=== PATIENT | female | born 1955 | race Caucasian/White ===

== ENCOUNTER → 2016-10-12 | Outpatient (CLI) | payer BC, OTHER ==
--- NOTE | 2016-10-12 14:17 | REP ---
Clinical: Chest pain . Comparison: None . Technique: PA and lateral. Findings: The mediastinum and cardiac silhouette are normal. The lung bourgeois are clear and without acute consolidation, effusion, or pneumothorax. The skeletal structures are intact and normal. Impression: 1. No acute cardiopulmonary process. Signed by Polo Cortes MD 10/12/2016 02:08 P
--- NOTE | 2016-10-12 14:18 | REP ---
Clinical: Pain. Technique: Internal rotation, external rotation, and Y view of the right and left shoulder. Findings: Spurring and cortical irregularities involving the bilateral acromioclavicular joints is appreciated along with cortical irregularity and blunting to the bilateral glenohumeral joints suggesting moderate osteoarthritic degenerative changes. There is no evidence for acute fracture or dislocation. Previously identified periarticular calcification in the left shoulder on 2010 is not evident on current examination. Impression: Moderate, symmetric bilateral osteoarthritic degenerative changes involving the acromioclavicular and glenohumeral joints. Signed by Polo Cortes MD 10/12/2016 02:10 P
--- NOTE | 2016-10-12 14:21 | REP ---
Clinical: Pain. Technique: AP, lateral, flexion/extension, bilateral oblique and open mouth views of the cervical spine. Findings: Chronic-appearing reversal of normal lordosis centered at approximately C5-6. Advanced multilevel degenerative disc osteophyte complexes predominantly involving C4-5 through C6-7 and to a lesser extent C7-T1. Findings include osteophytosis, endplate sclerosis and disc space narrowing. No acute fracture / compression injury. Open mouth view demonstrates normal C1-C2 articulation and odontoid process. Impression: Advanced multilevel degenerative disc osteophyte complexes. No acute fracture / compression injury. Signed by Polo Cortes MD 10/12/2016 02:13 P
== END ==
LOC: M WUC 13:38
PROVIDERS: ATTEND Physician Assistant Medical
DX: M79.601 Pain in right arm (principal); M79.602 Pain in left arm

== ENCOUNTER → 2016-10-12 | Outpatient (REF) | payer OTHER ==
[2016-10-12 14:03] LABS: ANION GAP 8 MEQ/L (8-16); BASO % 0.3 % (0.0-1.0); BLOOD UREA NITROGEN 11 MG/DL (7-18); CALCIUM LEVEL 9.6 MG/DL (8.8-10.2); CARBON DIOXIDE LEVEL 29 MEQ/L (21-32); CHLORIDE LEVEL 106 MEQ/L (98-107); CREATININE FOR GFR 0.82 MG/DL (0.55-1.02); EOS # 0.1 K/mm3 (0.0-0.50); EOS % 0.9 % (0.0-3.0); GLOMERULAR FILTRATION RATE > 60.0 (>45); GLUCOSE, FASTING 84 MG/DL (80-110); LARGE UNSTAINED CELL # 0.1 K/mm3 (0.0-0.4); LARGE UNSTAINED CELL % 1.5 % (0.0-4.0); LYMPH # 1.9 K/mm3 (1.5-4.5); LYMPH % 23.5 % (24.0-44.0); MEAN CORPUSCULAR HEMOGLOBIN 30.8 pg (27.0-33.0); MEAN CORPUSCULAR HGB CONC 33.4 g/dl (32.0-36.5); MEAN CORPUSCULAR VOLUME 92.4 fl (80.0-96.0); MONO # 0.5 K/mm3 (0.0-0.8); NEUTROPHILS # 5.6 K/mm3 (1.8-7.7); NEUTROPHILS % 67.9 % (36.0-66.0); PLATELET COUNT, AUTOMATED 317 k/mm3 (150-450); POTASSIUM SERUM 4.2 MEQ/L (3.5-5.1); RED CELL DISTRIBUTION WIDTH 12.4 % (11.5-14.5); SODIUM LEVEL 143 MEQ/L (136-145); WHITE BLOOD COUNT 8.2 K/mm3 (4.0-10.0)
== END ==
LOC: M SFHCPLAZ 12:32
PROVIDERS: ATTEND Physician Assistant Medical
DX: M79.602 Pain in left arm (principal); R73.01 Impaired fasting glucose

== ENCOUNTER → 2016-12-15 | Outpatient (CLI) | payer BC, OTHER ==
--- NOTE | 2016-12-16 09:59 | REP ---
MR RIGHT SHOULDER: TECHNIQUE: Axial T2 fat sat, gradient echo, sagittal oblique T2 fat sat, coronal oblique T1, T2 fat sat. The supraspinatus tendon demonstrates abnormal increased signal extending through the distal aspect of the tendon on T2-weighted images consistent with a full thickness partial tear. There is ill-defined high signal on remainder of the tendon compatible with tendinopathy. The other rotator cuff tendons are intact. There are mild hypertrophic degenerative changes of the acromioclavicular joint with mild downward sloping and curved shape of the acromion. The biceps tendon is within the bicipital groove with no tenosynovitis. There is no Hill-Sach's deformity. The deltoid muscle is unremarkable with no abnormal signal. Biceps labral complex is intact. No definite labral tear is seen. There is no bone marrow edema or occult fracture. There is mild to moderate fluid in the subacromial subdeltoid bursa. No paralabral cyst is seen. IMPRESSION: Full thickness partial tear anterior supraspinatus tendon distal aspect. Tendopathy throughout the remainder of the supraspinatus tendon with ill-defined high signal noted. Other rotator cuff tendons are intact. No definite labral tear is seen, but the labrum would be better evaluated with MR arthrogram. Mild hypertrophic degenerative changes, acromioclavicular joint with mild downward sloping and curved shaped of the acromion. Mild to moderate fluid in the subacromial subdeltoid bursa. Signed by David Rojo MD 12/16/2016 07:09 P
== END ==
LOC: M RAD 16:26
PROVIDERS: ATTEND Physician Assistant Medical
DX: M54.2 Cervicalgia (principal)

== ENCOUNTER → 2016-12-20 | Outpatient (CLI) | payer BC, OTHER ==
--- NOTE | 2016-12-20 09:41 | REP ---
MR CERVICAL SPINE WITHOUT CONTRAST: HISTORY: Neck and shoulder pain. A small central disc protrusion is present at the C3-4 level. There is minimal effacement of the thecal sac without spinal cord compression. Facet hypertrophy is present on the left. This produces minimal narrowing of the left C3 neural foramen. The right C3 neural foramen is patent. A disc bulge and small central disc protrusion with associated osteophyte formation are present at the C4-5 level. There is minimal deformity of spinal cord. Bilateral uncinate process hypertrophy is present. This produces minimal and mild narrowing of the right and left C4 neural foramina respectfully. A disc bulge and small right paracentral disc protrusion with associated osteophyte formation are present at the C5-6 level. There is minimal spinal cord compression. Uncinate process hypertrophy is present on the left. This produces mild narrowing of the left C5 neural foramen. The right C5 neural foramen is patent. A disc bulge with associated osteophyte formation is present at the C6-7 level. There is mild effacement of the thecal sac without spinal cord compression. The C6 neural foramina are patent. A small central disc protrusion is present at the C7-T1 level. There is minimal effacement of the thecal sac without spinal cord compression. The C7 neural foramina are patent. There is no other disc bulge or herniation. The remaining neural foramina are patent. The spinal cord is normal in signal intensity. The C3-4 through C6-7 intervertebral discs are decreased in height consistent with disc degeneration. Increased signal intensity on T2-weighted images is present in the endplates of the C4 through 7 vertebral bodies. This represents degenerative change. IMPRESSION: There is cervical spondylosis at the C3-4 through C7-T1 levels most significant at the C5-6 level where there is minimal spinal cord compression. Signed by Adelso Dawn MD 12/20/2016 09:45 A
== END ==
LOC: M RAD 08:08
PROVIDERS: ATTEND Physician Assistant Medical
DX: M54.2 Cervicalgia (principal)

== ENCOUNTER → 2017-03-23 | Outpatient (REF) | payer OTHER | LOC: M LAB REF 17:21 | PROVIDERS: ATTEND Nurse Practitioner Women's Health | DX: Z00.00 Encounter for general adult medical examination without abnormal findings (principal) ==

== ENCOUNTER → 2017-03-23 | Outpatient (REF) | payer OTHER | LOC: M SFHCWAGY 11:16 | PROVIDERS: ATTEND Nurse Practitioner Women's Health | DX: Z12.4 Encounter for screening for malignant neoplasm of cervix (principal) ==

== ENCOUNTER → 2017-03-23 | Outpatient (CLI) | payer BC ==
--- NOTE | 2017-03-23 12:45 | REPMRS ---
Patient History The patient states she had a clinical breast exam in 03/2017. Patient is postmenopausal. Family history of colorectal cancer in brother at age 68 and prostate cancer in brother at age 69. Took hormonal contraceptives for 12 years. Taking estrogen for 10 years. Took progesterone for 6 years. Digital Woman Screen Mammo: March 23, 2017 - Exam #: [id number] Bilateral CC and MLO view(s) were taken. Technologist: aTmmy Abraham, Technologist Prior study comparison: March 17, 2016, digital woman screen mammo performed at [facility] to [facility]. January 28, 2015, digital woman screen mammo performed at [facility]. January 25, 2014, bilateral bilat screen digital mammo, performed at [facility] ([facility]). FINDINGS: The breast tissue is almost entirely fat. There has been no change in the appearance of the mammogram from the prior studies. There is no interval development of dominant mass, architectural distortion, or clustered microcalcification typical of malignancy. ASSESSMENT: BI-RADS/ACR category 1 mammogram. Negative. Recommendation Routine screening mammogram of both breasts in 1 year (for women over age 40). This mammogram was interpreted with the aid of an FDA-approved computer-aided dectection system. Electronically Signed By: Brooks Cano MD 03/23/17 [id number]
== END ==
LOC: M WHC 10:48
PROVIDERS: ATTEND Family Medicine
DX: Z12.31 Encounter for screening mammogram for malignant neoplasm of breast (principal)

== ENCOUNTER → 2017-09-05 | Outpatient (CLI) | payer BC, OTHER ==
[~2017-09-05] MED LIST: E-Z-GAS II EFFERVESCENT PACKET (SODIUM BICARB./CITRIC ACID/SIMETHICONE) As Ordered; E-Z-HD 98% w/w 340GM SUSP BTL As Ordered; E-Z-PAQUE 96% w/w SUSP 176GM BTL As Ordered
== END ==
LOC: M RAD 08:35
DX: K21.9 Gastro-esophageal reflux disease without esophagitis (principal); R13.10 Dysphagia, unspecified
CPT/HCPCS: 74220

== ENCOUNTER 2017-09-29 09:05 | Day surgery (SDC) | payer BC, OTHER ==
[2017-09-29] MEDS: NS 1,000 ML IV (09:45)
[2017-09-29] MEDS ORDERED: LIDOCAINE 2% INJ 100 MG/5 ML SDV (FOR ANES.) As Ordered (11:03)
[2017-09-29] MEDS ORDERED: PROPOFOL 200 MG/20 ML VIAL As Ordered ×2 (11:03)
== END 2017-09-29 12:15 | disposition home or self-care (01) ==
LOC: M OPP 09:05
DX: Z12.11 Encounter for screening for malignant neoplasm of colon (principal); Z86.010 Personal history of colon polyps; Z80.0 Family history of malignant neoplasm of digestive organs; D12.2 Benign neoplasm of ascending colon; K57.30 Diverticulosis of large intestine without perforation or abscess without bleeding; K64.8 Other hemorrhoids; R13.12 Dysphagia, oropharyngeal phase; K21.9 Gastro-esophageal reflux disease without esophagitis; K44.9 Diaphragmatic hernia without obstruction or gangrene; E04.2 Nontoxic multinodular goiter; R12 Heartburn; M19.90 Unspecified osteoarthritis, unspecified site; M51.9 Unspecified thoracic, thoracolumbar and lumbosacral intervertebral disc disorder; L70.9 Acne, unspecified; F32.9 Major depressive disorder, single episode, unspecified; R51 Headache; R05 Cough; G47.30 Sleep apnea, unspecified; R06.83 Snoring; Z80.42 Family history of malignant neoplasm of prostate; Z91.030 Bee allergy status; Z79.899 Other long term (current) drug therapy
CPT/HCPCS: 45385

== ENCOUNTER → 2017-11-21 | Outpatient (CLI) | payer BC, OTHER | LOC: M RAD 14:54 | DX: E04.2 Nontoxic multinodular goiter (principal) | CPT/HCPCS: 76536 ==

== ENCOUNTER → 2017-12-29 | Outpatient (CLI) | payer BC, OTHER | LOC: M RAD 15:56 | DX: N95.0 Postmenopausal bleeding (principal) ==

== ENCOUNTER 2018-01-02 06:13 | Day surgery (SDC) | payer BC, OTHER ==
[2018-01-02] MEDS ORDERED: LIDOCAINE 1% MDV 20ML VIAL SQ (06:30)
[2018-01-02] MEDS: LR 1,000 ML IV (06:45)
[2018-01-02] MEDS ORDERED: fentaNYL 100 MCG/2 ML INJECTION (J3010) As Ordered (07:03)
[2018-01-02] MEDS ORDERED: MIDAZOLAM INJ 2 MG/2 ML VIAL (J2250) As Ordered (07:03)
[2018-01-02] MEDS ORDERED: PROPOFOL 200 MG/20 ML VIAL As Ordered (07:06)
[2018-01-02] MEDS ORDERED: ROCURONIUM BROMIDE 50 MG/5 ML VIAL As Ordered (07:06)
[2018-01-02] MEDS ORDERED: LIDOCAINE 2% INJ 100 MG/5 ML SDV (FOR ANES.) As Ordered (07:06)
[2018-01-02] MEDS ORDERED: dexameTHASONE 4 MG/ML 1ML VIAL (J1100) As Ordered (07:42)
[2018-01-02] MEDS ORDERED: IBUPROFEN 600 MG TAB PO (09:00)
[2018-01-02] MEDS ORDERED: METOCLOPRAMIDE INJ 10MG/2ML VIAL (J2765) IV (09:00)
[2018-01-02] MEDS ORDERED: LR 1,000 ML IV ×2 (09:00)
[2018-01-02] MEDS ORDERED: fentaNYL 100 MCG/2 ML INJECTION (J3010) IV (09:00)
[2018-01-02] MEDS ORDERED: ONDANSETRON 4MG/2ML VIAL (J2405) IV (09:00)
[2018-01-02] MEDS ORDERED: PERCOCET 5MG/325MG TAB PO (09:00)
== END 2018-01-02 10:37 | disposition home or self-care (01) ==
LOC: M SDC 06:13
DX: N95.0 Postmenopausal bleeding (principal); D25.1 Intramural leiomyoma of uterus; K21.9 Gastro-esophageal reflux disease without esophagitis; Z79.899 Other long term (current) drug therapy; F41.9 Anxiety disorder, unspecified; F32.9 Major depressive disorder, single episode, unspecified
CPT/HCPCS: 58558

== ENCOUNTER → 2018-04-07 | Outpatient (CLI) | payer BC, OTHER | LOC: M RAD 15:49 | DX: D25.1 Intramural leiomyoma of uterus (principal); D25.2 Subserosal leiomyoma of uterus; N83.8 Other noninflammatory disorders of ovary, fallopian tube and broad ligament; R93.8 Abnormal findings on diagnostic imaging of other specified body structures | CPT/HCPCS: 76856 ==

== ENCOUNTER → 2018-04-10 | Outpatient (CLI) | payer BC, OTHER | LOC: M RAD 14:46 | DX: Z12.31 Encounter for screening mammogram for malignant neoplasm of breast (principal) | CPT/HCPCS: 77067 ==

== ENCOUNTER → 2019-04-12 | Outpatient (CLI) | payer MEDICARE, BC, OTHER ==
[~2019-04-12] MED LIST changes: +BUPR1TAB52 PO; +CALC600T57 PO; +CYCL5TAB; -E-Z-GAS II EFFERVESCENT PACKET (SODIUM BICARB./CITRIC ACID/SIMETHICONE) As Ordered; -E-Z-HD 98% w/w 340GM SUSP BTL As Ordered; -E-Z-PAQUE 96% w/w SUSP 176GM BTL As Ordered; +ESTR0.1C5; +FLUO10TA30 PO; +NORT25CA2; +REST0.057 OU; +SPIR50TA4 PO; +VITA100067 PO
--- NOTE | 2019-04-13 07:27 | REPMRS ---
Patient History The patient states she had a clinical breast exam 6 months ago.Patient is postmenopausal. Family history of prostate cancer at age 69 in brother, colorectal cancer at age 68 in brother. Took hormonal contraceptives for 12 years. Taking estrogen for 7 years. Took progesterone for 6 years. 3D TOMOSYNTHESIS WAS PERFORMED. The [facility] lifetime risk for breast cancer is 5.6%. Digital Mammo Screening Bilat: April 12, 2019 - Exam #: [id number] Bilateral CC and MLO view(s) were taken. Technologist: Kathy Comer, Technologist Prior study comparison: April 10, 2018, bilateral digital mammo screening bilat performed at [facility]. March 23, 2017, digital woman screen mammo, performed at [facility]. FINDINGS: There are scattered fibroglandular densities. There has been no change in the appearance of the mammogram from the prior studies. There is a mild amount of residual fibroglandular tissue which is fairly symmetric. There is no interval development of dominant mass, architectural distortion, or clustered microcalcification suggestive of malignancy. Assessment: BI-RADS/ACR category 1 mammogram. Negative Mammogram. Recommendation Routine screening mammogram in 1 year (for women over age 40). This mammogram was interpreted with the aid of an FDA-approved computer-aided dectection system. Electronically Signed By: David Rojo MD 04/12/19 [id number]
== END ==
LOC: M RAD 15:56
PROVIDERS: ATTEND Family Medicine
DX: Z12.31 Encounter for screening mammogram for malignant neoplasm of breast (principal); Z80.42 Family history of malignant neoplasm of prostate; Z80.0 Family history of malignant neoplasm of digestive organs

== ENCOUNTER 2020-02-12 12:02 | Emergency (ER) | payer MEDICARE, BC, OTHER ==
[2020-02-12] MEDS ORDERED: NITROGLYCERIN 0.4 MG SUBL TABLET As Ordered ONE (13:59)
[2020-02-12] MEDS ORDERED: ASPIRIN 81 MG CHEW TABLET As Ordered ONE (13:59)
[2020-02-12] MEDS ORDERED: NITROGLYCERIN 0.4 MG SUBL TABLET ONE (13:59)
[2020-02-12] MEDS ORDERED: ASPIRIN 81 MG CHEW TABLET ONE (13:59)
[2020-02-12] MEDS ORDERED: ISOVUE-370 76% 100ML VIAL As Ordered ONE (15:18)
[2020-02-12] MEDS ORDERED: GI COCKTAIL 50ML BTL(HYOSCYAMINE/MAALOX/LIDOCAINE VISCOUS)(1:3:1) As Ordered ONE (16:19)
[2020-02-12] MEDS ORDERED: GI COCKTAIL 50ML BTL(HYOSCYAMINE/MAALOX/LIDOCAINE VISCOUS)(1:3:1) ONE (16:19)
[2020-03-09 22:56] LABS: BLOOD UREA NITROGEN 14 MG/DL (7-18); CALCIUM LEVEL 9.1 MG/DL (8.8-10.2); CARBON DIOXIDE LEVEL 29 MEQ/L (21-32); CHLORIDE LEVEL 107 MEQ/L (98-107); CK-MB VALUE MASS < 1.0 NG/ML (<3.6); CPK CREATINE PHOSPHOKINASE 89 U/L (26-192); CREATININE FOR GFR 0.94 MG/DL (0.55-1.30); GLOMERULAR FILTRATION RATE > 60.0 (>45); GLUCOSE, FASTING 94 MG/DL (70-100); MB/CK RELATIVE INDEX 1.12 (< OR =4); POTASSIUM SERUM 4.3 MEQ/L (3.5-5.1); SODIUM LEVEL 143 MEQ/L (136-145); TROPONIN I < 0.02 NG/ML (< 0.10)
[2020-03-14 14:04] LABS: BASO % 0.6 % (0.0-1.0); EOS # 0.1 10^3/uL (0.0-0.5); EOS % 1.7 % (0.0-3.0); HEMATOCRIT 39.3 % (36.0-47.0); HEMOGLOBIN 13.2 g/dl (12.0-15.5); LYMPH # 2.2 10^3/uL (1.5-5.0); LYMPH % 31.7 % (24.0-44.0); MEAN CORPUSCULAR HEMOGLOBIN 31.1 pg (27.0-33.0); MEAN CORPUSCULAR HGB CONC 33.6 g/dl (32.0-36.5); MEAN CORPUSCULAR VOLUME 92.7 fl (80.0-96.0); MONO # 0.7 10^3/uL (0.0-0.8); MONO % 9.8 % (0.0-5.0); NEUTROPHILS # 3.9 10^3/uL (1.5-8.5); NEUTROPHILS % 55.6 % (36.0-66.0); PLATELET COUNT, AUTOMATED 322 10^3/uL (150-450); RED BLOOD COUNT 4.24 10^6/uL (4.00-5.40)
--- NOTE | 2020-04-03 11:28 | ECGEPIP ---
SINUS RHYTHM NORMAL ECG NONSPECIFIC ST & T-WAVE ABNORMALITY NO OLD AVAILABLE SEE SCANNED DOWNTIME REPORT MTDD
--- NOTE | 2020-04-07 08:22 | REP ---
CT OF THE CHEST WITH CONTRAST: HISTORY: Acute chest pain. TECHNIQUE: Axial contrast-enhanced images from the thoracic inlet to the upper abdomen using pulmonary embolus technique. 75 cc Isovue 370 intravenous contrast material administered without complications. FINDINGS: The pulmonary vasculature is normal and there is no evidence for pulmonary embolus. The thoracic aorta is without aneurysm or dissection. The heart and pericardium appear normal. No axillary, hilar or mediastinal adenopathy noted. The tracheobronchial tree is patent. The bilateral lung bourgeois are well aerated and clear. No consolidation, effusion or pneumothorax. Surrounding musculoskeletal structures are intact. IMPRESSION: Normal contrast-enhanced chest CT. No evidence for pulmonary embolus. No acute mediastinal or pleuroparenchymal process. MTDD
== END 2020-02-12 16:46 | disposition home or self-care (01) ==
LOC: M ED 12:02
DX: R07.9 Chest pain, unspecified (principal); F32.9 Major depressive disorder, single episode, unspecified; G47.00 Insomnia, unspecified; Z79.899 Other long term (current) drug therapy
CPT/HCPCS: 71046; 71275; 80048; 82550; 82553; 84484; 85025; 93005; 99284; Q9967

== ENCOUNTER → 2020-03-06 | Outpatient (CLI) | payer MEDICARE, BC, OTHER ==
[2020-03-06 21:23] LABS: ALBUMIN 4.3 GM/DL (3.2-5.2); BLOOD UREA NITROGEN 16 MG/DL (7-18); CALCIUM LEVEL 9.6 MG/DL (8.8-10.2); CARBON DIOXIDE LEVEL 28 MEQ/L (21-32); CHLORIDE LEVEL 108 MEQ/L (98-107); CREATININE FOR GFR 0.96 MG/DL (0.55-1.30); FREE T4 1.04 NG/DL (0.76-1.46); GLOMERULAR FILTRATION RATE > 60.0 (>45); GLUCOSE, FASTING 96 MG/DL (70-100); PHOSPHORUS LEVEL 3.3 MG/DL (2.5-4.9); POTASSIUM SERUM 4.6 MEQ/L (3.5-5.1); SODIUM LEVEL 141 MEQ/L (136-145); THYROID STIMULATING HORMONE 0.601 uIU/ML (0.358-3.740)
== END ==
LOC: M PLALAB 13:59
PROVIDERS: ATTEND Family Medicine
DX: R00.2 Palpitations (principal)
CPT/HCPCS: 36415; 80069; 84439; 84443; G0463

== ENCOUNTER → 2020-05-09 | Outpatient (CLI) | payer MEDICARE, BC ==
--- NOTE | 2020-05-09 13:53 | REPMRS ---
Patient History The patient states she has not had a clinical breast exam in over a year. Patient is postmenopausal. Family history of prostate cancer at age 69 in brother, colorectal cancer at age 68 in brother. Took hormonal contraceptives for 12 years. Took estrogen for 7 years. Took progesterone for 6 years. 3D TOMOSYNTHESIS WAS PERFORMED. The [facility] lifetime risk for breast cancer is 5.3%. Volpara breast density a. Digital Woman Screen Mammo: May 09, 2020 - Exam #: [id number] Bilateral CC and MLO view(s) were taken. Technologist: Tammy Abraham, Technologist Prior study comparison: April 12, 2019, bilateral digital mammo screening bilat, performed at [facility]. April 10, 2018, bilateral digital mammo screening bilat, performed at [facility]. FINDINGS: There are scattered fibroglandular densities. There has been no change in the appearance of the mammogram from the prior studies. There is a mild amount of residual fibroglandular tissue which is fairly symmetric. There is no interval development of dominant mass, architectural distortion, or clustered microcalcification suggestive of malignancy. Assessment: BI-RADS/ACR category 1 mammogram. Negative Mammogram. Recommendation Routine screening mammogram in 1 year (for women over age 40). This mammogram was interpreted with the aid of an FDA-approved computer-aided dectection system. Electronically Signed By: David Rojo MD 05/09/20 [id number]
== END ==
LOC: M WHC 12:41
PROVIDERS: ATTEND Family Medicine
DX: Z12.31 Encounter for screening mammogram for malignant neoplasm of breast (principal); Z78.0 Asymptomatic menopausal state; Z80.42 Family history of malignant neoplasm of prostate; Z80.0 Family history of malignant neoplasm of digestive organs; Z92.0 Personal history of contraception; Z92.23 Personal history of estrogen therapy; Z92.29 Personal history of other drug therapy

== ENCOUNTER → 2020-05-16 | Outpatient (CLI) | payer MEDICARE, BC, OTHER ==
--- NOTE | 2020-05-16 11:44 | REP ---
INDICATION: MULTINODULAR THYROID. COMPARISON: 11/21/2017. TECHNIQUE: Real-time sonographic evaluation of thyroid performed. FINDINGS: Right lobe measures 5.1 x 1.6 x 1.6 cm and left lobe 4.2 x 1.3 x 1.6 cm. On the right there is a 2 mm cyst in the upper pole. There is a 4 mm cyst in the mid aspect of the right lobe within Bharath 5 mm solid nodule. In the right lower pole there is a predominantly solid nodule with tiny central cystic component, with a few tiny internal echogenic foci. This measures 1.9 x 1.1 x 1.2 cm and is essentially unchanged. On the left 2 mm hypoechoic nodule is seen in the mid aspect. A 5 mm nodule is seen in the lower pole. This is unchanged. IMPRESSION: Stable nodules in both lobes of the thyroid as discussed above. <Electronically signed by David Rojo > 05/16/20 [id number]
== END ==
LOC: M RAD 09:39
PROVIDERS: ATTEND Family Medicine
DX: E04.2 Nontoxic multinodular goiter (principal)

== ENCOUNTER → 2020-10-08 | Outpatient (CLI) | payer MEDICARE, BC ==
--- NOTE | 2020-10-08 14:43 | DEXAMM ---
INDICATION: ESTROGEN DEF/E28.39. COMPARISON: Comparison study August 08, 2015 and July 28, 2010.. TECHNIQUE: Bone density was measured using dual-energy x-ray absorptionmetry (DEXA). FINDINGS: AP SPINE L1-L4 BMD 1.181 g/cm2 Young Adult T-Score -0.1 Age Matched Z-Score 1.5. LT FEMUR, TOTAL BMD 1.096 g/cm2 Young Adult T-Score 0.7 Age Matched Z-Score 2.0. LT NECK BMD 0.893 g/cm2 Young Adult T-Score -1.0 Age Matched Z-Score 0.5. RT FEMUR, TOTAL BMD 1.069 g/cm2 Young Adult T-Score 0.5 Age Matched Z-Score 1.8. RT NECK BMD 0.904 g/cm2 Young Adult T-Score -1.0 Age Matched Z-Score 0.6. IMPRESSION: There is normal bone density of the spine. There is low bone density of the left hip. There is low bone density of the right hip. The density of the spine has decreased 4.8% since the initial exam on July 28, 2010. The density of the spine decreased 1.3% since most recent exam on August 08, 2015. The density of the left hip has increased 3.1% since initial exam on July 28, 2010. The density of the left hip has increased 1.3% since most recent exam on August 08, 2015. The density of the right hip has increased 1.9% since the initial exam on July 28, 2010. The density of the right hip has decreased 0.4% since the most recent exam on August 08, 2015. FOLLOW-UP: Recommendation for the next bone density exam: 2 years. <Electronically signed by Brooks Cano > 10/08/20 [id number]
== END ==
LOC: M WHC 13:01
PROVIDERS: ATTEND Family Medicine
DX: E28.39 Other primary ovarian failure (principal)

== ENCOUNTER → 2021-04-08 | Outpatient (CLI) | payer MEDICARE, BC, OTHER ==
--- NOTE | 2021-04-08 13:30 | REP ---
INDICATION: SACROILIITIS, TROCHANTERIC BURSITIS OF RIGHT HIP. COMPARISON: None. TECHNIQUE: A single AP view of the pelvis was performed. FINDINGS: The hip joint spaces are symmetric and relatively well maintained. There is no acute fracture or destructive osseous lesion. There are numerous mm sized sclerotic densities in the left femoral neck. IMPRESSION: Numerous tiny sclerotic densities in the left femoral neck possibly representing an imaging artifact or multiple bone islands as a form of focal osteopoikilosis. The examination is otherwise unremarkable. <Electronically signed by Ishaan Sanchez > 04/08/21 [id number]
== END ==
LOC: M WUC 13:07
PROVIDERS: ATTEND Family Medicine
DX: M46.1 Sacroiliitis, not elsewhere classified (principal); M70.61 Trochanteric bursitis, right hip

== ENCOUNTER → 2021-06-05 | Outpatient (CLI) | payer MEDICARE, BC, OTHER ==
--- NOTE | 2021-06-05 12:35 | REPMRS ---
Patient History The patient states she has not had a clinical breast exam in over a year. Family history of prostate cancer at age 69 in brother, colorectal cancer at age 68 in brother. Took hormonal contraceptives for 12 years. Took estrogen for 7 years. Took progesterone for 6 years. Patient states no breast complaints today. Patient has signed MRS History Sheet. Digital Woman Screen Mammo: June 05, 2021 - Exam #: [id number] Bilateral CC and MLO view(s) were taken. Technologist: RT Michelle Prior study comparison: May 09, 2020, bilateral digital woman screen mammo performed at [facility]. April 12, 2019, bilateral digital mammo screening bilat, performed at [facility]. FINDINGS: The breast tissue is almost entirely fat. Screening. Digital screening (2D) mammography was performed bilaterally in the CC and MLO projections. Additionally, breast tomosynthesis (3D mammography) was performed bilaterally in the CC and MLO projections. Todays exam was compared to the prior exam/exams. By history, the patient has no complaints of a palpable breast abnormality or other significant breast complaints. The Volpara volumetric breast density category is A, the breasts are almost entirely fatty. The breasts are unchanged in size and shape. There are no cally-soft tissue densities or spiculated masses. There is no internal architectural distortion. There are no suspicious cally-calcific clusters. Skin thickening or nipple retraction is not present. IMPRESSION: BI-RADS Category 2- Benign Findings. There is no evidence of malignant alteration of the breasts. Followup examination recommended in one year. The lifetime Tyrer-Cuzick score is 5.0% This mammogram was read with the assistance of [employer] [place],an FDA approved computer aided detection system for mammography. Negative x-ray reports should not delay surgical consultation if a dominant or clinically suspicious mass is present. Not all breast cancers can be identified by mammography. Therefore, we recommend that you continue to perform regular breast self-examination and physical examination and then promptly contact your physician of any concerns or changes. Adenosis and dense breasts may obscure an underlying neoplasm. No significant changes when compared with prior studies. Assessment: BI-RADS/ACR category 2 mammogram. Benign Findings. Recommendation Routine screening mammogram of both breasts in 1 year. Electronically Signed By: Regan Mayorga MD 06/05/21 [id number]
== END ==
LOC: M WHC 11:18
PROVIDERS: ATTEND Family Medicine
DX: Z12.31 Encounter for screening mammogram for malignant neoplasm of breast (principal); Z92.0 Personal history of contraception

== ENCOUNTER → 2021-06-24 | Outpatient (CLI) | payer MEDICARE, BC, OTHER ==
--- NOTE | 2021-06-24 11:46 | REP ---
INDICATION: OSTEOPOIKILOSIS. COMPARISON: Pelvis radiograph 04/08/2021. TECHNIQUE/RADIOTRACER AND DOSE: Following the intravenous administration of 21.8mCi technetium 99 M MDP, patient's whole-body is imaged in multiple projections. FINDINGS: There is no abnormal uptake in the proximal left femur at the site of the suspected bone islands. There is mild arthritic uptake in the lower cervical spine and at the lumbosacral junction. Otherwise no focal area of increased or decreased radiotracer uptake is seen in the axial or appendicular skeleton. There is no compelling scintigraphic evidence of osseous metastases. Renal and bladder activity are seen. IMPRESSION: Mild arthritic uptake in the cervical and lumbar spine. No compelling scintigraphic evidence of osseous metastases. No abnormal uptake in the proximal left femur. <Electronically signed by David Rojo > 06/24/21 [id number]
== END ==
LOC: M RAD 07:51
PROVIDERS: ATTEND Family Medicine
DX: Q78.8 Other specified osteochondrodysplasias (principal)
CPT/HCPCS: 78306; A9503

== ENCOUNTER → 2021-12-08 | Outpatient (REF) | payer MEDICARE, BC, OTHER | LOC: M SFHCPLAZ 12:50 | PROVIDERS: ATTEND Physician Assistant | DX: R39.9 Unspecified symptoms and signs involving the genitourinary system (principal) ==

== ENCOUNTER → 2022-06-25 | Outpatient (CLI) | payer MEDICARE, BC, OTHER | LOC: M WHC 09:06 | PROVIDERS: ATTEND Family Medicine | DX: Z12.31 Encounter for screening mammogram for malignant neoplasm of breast (principal) ==

== ENCOUNTER → 2022-10-06 | Outpatient (CLI) | payer MEDICARE, BC, OTHER ==
[~2022-10-06] MED LIST changes: -NORT25CA2; +NORT25CA2 PO; +VITA100093 PO
== END ==
LOC: M LABSMTC 10:35
PROVIDERS: ATTEND Anesthesiology
DX: Z01.818 Encounter for other preprocedural examination (principal); Z11.52 Encounter for screening for COVID-19

== ENCOUNTER 2022-10-11 08:24 | Day surgery (SDC) | payer MEDICARE, BC, OTHER ==
[~2022-10-11] VITALS: Ht 160 cm; Wt 78.8 kg
[~2022-10-11 08:24] MED LIST changes: +LIDOCAINE 2% 100MG/5ML SDV (FOR ANES.) As Ordered ONE; +NS 1,000 ML IV ONE; +propofoL 200 MG/20 ML VIAL As Ordered ONE
[2022-10-11] MEDS ORDERED: fentaNYL 100 MCG/2 ML INJECTION As Ordered ONE (09:16)
[2022-10-11 11:00] VITALS: BP 114/67
== END 2022-10-11 11:24 | disposition home or self-care (01) ==
LOC: M OPP 08:24
PROVIDERS: ATTEND Internal Medicine Gastroenterology
DX: Z12.11 Encounter for screening for malignant neoplasm of colon (principal); Z86.010 Personal history of colon polyps; Z80.0 Family history of malignant neoplasm of digestive organs; D12.4 Benign neoplasm of descending colon; K57.30 Diverticulosis of large intestine without perforation or abscess without bleeding; K64.8 Other hemorrhoids; K44.9 Diaphragmatic hernia without obstruction or gangrene; K20.90 Esophagitis, unspecified without bleeding; K22.89 Other specified disease of esophagus; G47.33 Obstructive sleep apnea (adult) (pediatric); Z99.89 Dependence on other enabling machines and devices; Z79.83 Long term (current) use of bisphosphonates; Z79.899 Other long term (current) drug therapy; Z91.030 Bee allergy status
CPT/HCPCS: 43239; 43249; 45385; 88305; J3010

== ENCOUNTER → 2022-10-28 | Outpatient (REF) | payer MEDICARE, OTHER ==
[~2022-10-28] MED LIST changes: -LIDOCAINE 2% 100MG/5ML SDV (FOR ANES.) As Ordered ONE; -NS 1,000 ML IV ONE; -propofoL 200 MG/20 ML VIAL As Ordered ONE
== END ==
LOC: M PLALAB 17:05
PROVIDERS: ATTEND Nurse Practitioner Family
DX: Z12.4 Encounter for screening for malignant neoplasm of cervix (principal)
CPT/HCPCS: 87624; G0123

== ENCOUNTER → 2022-10-28 | Outpatient (CLI) | payer MEDICARE, BC, OTHER | LOC: M WHC 15:26 | PROVIDERS: ATTEND Nurse Practitioner Family | DX: Z13.820 Encounter for screening for osteoporosis (principal); M85.851 Other specified disorders of bone density and structure, right thigh; M85.852 Other specified disorders of bone density and structure, left thigh ==

== ENCOUNTER → 2023-01-20 | Outpatient (REF) | payer MEDICARE, OTHER | LOC: M SFHCPLAZ 14:24 | PROVIDERS: ATTEND Family Medicine | DX: R73.01 Impaired fasting glucose (principal); E55.9 Vitamin D deficiency, unspecified; D75.89 Other specified diseases of blood and blood-forming organs ==

== ENCOUNTER → 2023-08-19 | Outpatient (CLI) | payer MEDICARE, BC, OTHER | LOC: M WHC 09:35 | PROVIDERS: ATTEND Family Medicine | DX: Z12.31 Encounter for screening mammogram for malignant neoplasm of breast (principal); E04.2 Nontoxic multinodular goiter ==

== ENCOUNTER 2023-10-14 23:12 | Emergency (ER) | payer MEDICARE, BC, OTHER ==
[2023-10-14] MEDS ORDERED: ASPIRIN 81MG CHEW TABLET PO ONE (23:30)
[2023-10-15] MEDS: SUCRALFATE 1 GM TAB PO ONE (00:04)
[2023-10-15 00:11] LABS: LIPASE 22 U/L (12-53)
[2023-10-15 00:13] LABS: ALBUMIN 3.9 G/DL (3.2-5.2); ALKALINE PHOSPHATASE 81 U/L (46-116); ALT/SGPT 20 U/L (7.0-40); AST/SGOT 21 U/L (<34); BILIRUBIN,DIRECT < 0.1 MG/DL (<0.4); BILIRUBIN,TOTAL 0.3 MG/DL (0.3-1.2); BLOOD UREA NITROGEN 17 MG/DL (9-23); CARBON DIOXIDE LEVEL 26 MMOL/L (20-31); CHLORIDE LEVEL 108 MMOL/L (98-107); CK-MB VALUE MASS < 1.0 NG/ML (<3.6); CREATININE FOR GFR 0.83 MG/DL (0.55-1.30); GLOMERULAR FILTRATION RATE > 60.0 (>45); GLUCOSE, FASTING 68 MG/DL (74-106); POTASSIUM SERUM 4.3 MMOL/L (3.5-5.1); SODIUM LEVEL 143 MMOL/L (136-145); TOTAL PROTEIN 6.4 G/DL (5.7-8.2)
[2023-10-15 00:17] LABS: THYROID STIMULATING HORMONE 2.371 uIU/ML (0.55-4.78)
[2023-10-15 00:18] LABS: BASO % 0.5 % (0.0-1.0); EOS % 1.2 % (0.0-3.0); HEMATOCRIT 35.1 % (36.0-47.0); HEMOGLOBIN 12.3 g/dl (12.0-15.5); LYMPH % 27.7 % (24.0-44.0); MEAN CORPUSCULAR HEMOGLOBIN 32.6 pg (27.0-33.0); MEAN CORPUSCULAR VOLUME 93.1 fl (80.0-96.0); MONO % 9.4 % (2.0-8.0); NEUTROPHILS % 61.1 % (36.0-66.0); PLATELET COUNT, AUTOMATED 306 10^3/uL (150-450); RED BLOOD COUNT 3.77 10^6/uL (4.00-5.40); WHITE BLOOD COUNT 7.5 10^3/uL (4.0-10.0)
[2023-10-15 00:19] LABS: EOS # 0.1 10^3/uL (0.0-0.5); LYMPH # 2.1 10^3/uL (1.5-5.0); MONO # 0.7 10^3/uL (0.0-0.8); NEUTROPHILS # 4.6 10^3/uL (1.5-8.5)
[2023-10-15 00:23] LABS: CPK CREATINE PHOSPHOKINASE 72 U/L (34-145); MB/CK RELATIVE INDEX 1.38 (< OR =4)
[2023-10-15] MEDS ORDERED: ISOVUE-370 76% 100ML VIAL As Ordered ONE (00:25)
[2023-10-15] MEDS ORDERED: SUCR1SS PO (01:15)
[2023-10-15] MEDS ORDERED: PROT1TAB2 PO (01:15)
[2023-10-15 01:39] LABS: CK-MB VALUE MASS < 1.0 NG/ML (<3.6)
[2023-10-15 01:40] LABS: CPK CREATINE PHOSPHOKINASE 49 U/L (34-145); MB/CK RELATIVE INDEX 2.04 (< OR =4)
[2023-10-15 03:51] LABS: CK-MB VALUE MASS < 1.0 NG/ML (<3.6)
[2023-10-15 03:52] LABS: CPK CREATINE PHOSPHOKINASE 53 U/L (34-145); MB/CK RELATIVE INDEX 1.88 (< OR =4)
[2023-10-15 04:16] VITALS: BP 115/70; TEMP 98.7; O2SAT 98
== END 2023-10-15 04:25 | disposition home or self-care (01) ==
LOC: M ED 23:12
DX: R07.9 Chest pain, unspecified (principal); Z91.030 Bee allergy status; Z79.810 Long term (current) use of selective estrogen receptor modulators (SERMs); Z79.83 Long term (current) use of bisphosphonates; Z79.899 Other long term (current) drug therapy
CPT/HCPCS: 36415; 71045; 71275; 80048; 80076; 82550; 82553; 83690; 84443; 84484; 85025; 93005; 93041; 94760; 99285; Q9967

== ENCOUNTER → 2024-01-13 | Outpatient (CLI) | payer MEDICARE, BC, OTHER ==
[~2024-01-13] MED LIST changes: +PROT1TAB2 PO; +SUCR1SS PO
[2024-01-13 11:41] LABS: BASO % 0.5 % (0.0-1.0); EOS # 0.1 10^3/uL (0.0-0.5); EOS % 1.3 % (0.0-3.0); HEMATOCRIT 39.2 % (36.0-47.0); HEMOGLOBIN 13.1 g/dl (12.0-15.5); LYMPH # 1.8 10^3/uL (1.5-5.0); LYMPH % 28.5 % (24.0-44.0); MEAN CORPUSCULAR HEMOGLOBIN 31.6 pg (27.0-33.0); MEAN CORPUSCULAR HGB CONC 33.4 g/dl (32.0-36.5); MEAN CORPUSCULAR VOLUME 94.5 fl (80.0-96.0); MONO # 0.6 10^3/uL (0.0-0.8); MONO % 9.9 % (2.0-8.0); NEUTROPHILS # 3.7 10^3/uL (1.5-8.5); NEUTROPHILS % 59.6 % (36.0-66.0); PLATELET COUNT, AUTOMATED 310 10^3/uL (150-450); RED BLOOD COUNT 4.15 10^6/uL (4.00-5.40); WHITE BLOOD COUNT 6.3 10^3/uL (4.0-10.0)
[2024-01-13 11:42] LABS: ALBUMIN 4.1 G/DL (3.2-5.2); ALKALINE PHOSPHATASE 77 U/L (46-116); ALT/SGPT 23 U/L (7.0-40); AST/SGOT 14 U/L (<34); BILIRUBIN,TOTAL 0.7 MG/DL (0.3-1.2); BLOOD UREA NITROGEN 15 MG/DL (9-23); CALCIUM LEVEL 9.6 MG/DL (8.3-10.6); CARBON DIOXIDE LEVEL 30 MMOL/L (20-31); CHLORIDE LEVEL 108 MMOL/L (98-107); CREATININE FOR GFR 0.84 MG/DL (0.55-1.30); GLOMERULAR FILTRATION RATE > 60.0 (>39); GLUCOSE, FASTING 84 MG/DL (74-106); POTASSIUM SERUM 5.2 MMOL/L (3.5-5.1); SODIUM LEVEL 141 MMOL/L (136-145); TOTAL PROTEIN 6.7 G/DL (5.7-8.2)
== END ==
LOC: M WUC 09:37
PROVIDERS: ATTEND Podiatrist
DX: Z01.812 Encounter for preprocedural laboratory examination (principal); M20.11 Hallux valgus (acquired), right foot; M20.5X1 Other deformities of toe(s) (acquired), right foot; Z79.899 Other long term (current) drug therapy

== ENCOUNTER 2024-02-03 07:10 | Day surgery (SDC) | payer MEDICARE, BC ==
[~2024-02-03] VITALS: Ht 160 cm; Wt 71.7 kg
[~2024-02-03 07:10] MED LIST changes: +ACETAMINOPHEN 1000MG 100ML IV BAG As Ordered ONE; +MIDAZOLAM INJ 2MG/2ML VIAL As Ordered ONE; +SEMA0.257 SC; +fentaNYL 100 MCG/2 ML INJECTION As Ordered ONE; +propofoL 200 MG/20 ML VIAL As Ordered ONE; +propofoL 500 MG/50 ML VIAL As Ordered ONE
[2024-02-03] MEDS ORDERED: dexmedeTOMIDine (4MCG/ML)200MCG/50ML BTL (PRECEDEX) As Ordered ONE (09:09)
[2024-02-03] MEDS ORDERED: LIDOCAINE 2% MDV 20ML VIAL As Ordered ONE (09:10)
[2024-02-03] MEDS ORDERED: GENTAMICIN SULF 80MG/2ML VIAL As Ordered ONE (09:11)
[2024-02-03] MEDS ORDERED: PERCOCET 5MG/325MG TAB As Ordered ONE (11:55)
== END 2024-02-03 12:35 | disposition home or self-care (01) ==
LOC: M SDC 07:10
PROVIDERS: ATTEND Podiatrist
DX: M20.11 Hallux valgus (acquired), right foot (principal); M20.41 Other hammer toe(s) (acquired), right foot; R73.03 Prediabetes; E04.2 Nontoxic multinodular goiter; G47.30 Sleep apnea, unspecified; Z79.899 Other long term (current) drug therapy; Z79.85 Long-term (current) use of injectable non-insulin antidiabetic drugs; Z91.030 Bee allergy status
CPT/HCPCS: 28285; 28296; 73630; 76000; 88300; 97116; 97530; C1713; J0131; J0665; J1580; J2250

== ENCOUNTER → 2024-08-20 | Outpatient (CLI) | payer MEDICARE, BC ==
[~2024-08-20] MED LIST changes: -ACETAMINOPHEN 1000MG 100ML IV BAG As Ordered ONE; -CYCL5TAB; +CYCL5TAB4; -MIDAZOLAM INJ 2MG/2ML VIAL As Ordered ONE; -fentaNYL 100 MCG/2 ML INJECTION As Ordered ONE; -propofoL 200 MG/20 ML VIAL As Ordered ONE; -propofoL 500 MG/50 ML VIAL As Ordered ONE
== END ==
LOC: M WHC 10:30
PROVIDERS: ATTEND Family Medicine
DX: Z12.31 Encounter for screening mammogram for malignant neoplasm of breast (principal)